=== PATIENT | female | born 1980 | race Caucasian/White ===

== ENCOUNTER 2024-03-04 17:19 | Emergency (ER) | payer OTHER, SELFPAY ==
[2024-03-04 17:32] VITALS: BP 152/89; PULSE 94; RESP 16; TEMP 37; O2SAT 99
--- NOTE | 2024-03-04 17:44 | ED.BACK ---
HPI - Back Pain/Injury General Chief Complaint: Back Pain/Injury Stated Complaint: back pain left side Time Seen by Provider: 03/04/24 17:44 Source: patient Mode of arrival: ambulatory Limitations: no limitations History of Present Illness HPI Narrative: 43-year-old female presents with complaint of pain to left upper back. States she was lifting a laundry basket over her head and felt muscle pop and pain. Took Aleve with no relief of pain. Pain worse with range of motion of left arm. Ambulatory with steady gait. No radiation of pain. No numbness or tingling to left upper extremity. All systems reviewed and negative except as noted above. Related Data Allergies Allergy/AdvReac Type Severity Reaction Status Date / Time iopamidol [From [id number]] Allergy Severe Anaphylaxis Verified 03/04/24 17:23 methylprednisolone Allergy Severe Anaphylaxis Verified 03/04/24 17:23 [From Depo-Medrol] Review of Systems Review of Systems: CONSTITUTIONAL: Denies fever, chills, or sweats. EYES: Denies visual changes, redness, or discharge. ENT: Denies rhinorrhea, congestion, sore throat, or otalgia. CARDIOVASCULAR: Denies chest pain, palpitations, or edema. RESPIRATORY: Denies cough or dyspnea. GASTROINTESTINAL: Denies abdominal pain, nausea, vomiting, or diarrhea. GENITOURINARY: Denies dysuria or hematuria. SKIN: Denies rash or itching. MUSCULOSKELETAL: Reports left upper back pain. Denies joint pain, or myalgia. NEUROLOGIC: Denies headache, numbness, or weakness. PSYCHIATRIC: Denies anxiety or depression. All other systems reviewed are negative, except as documented in HPI. PMFSH Social History Social History (Updated 10/12/19 @ 09:35 by Tadeo Valero, PAChrissyC) Smoking status: Never smoker Gender identity (if verbalized by the patient): Female Comments At time of signature, agree with nursing past medical, surgical, social and family history. There is no relevant family history pertinent to the presenting complaint. Exam Narrative: GENERAL: This is a well-nourished, well-developed patient, in no apparent distress. HEAD: normocephalic, atraumatic. EYES: PERRL. Sclera clear/white. Vision is grossly intact. EARS: External ears normal NOSE: External nose normal NECK: Neck supple, non-tender without lymphadenopathy, masses or thyromegaly. CARDIOVASCULAR: Regular rate and rhythm without murmurs, gallops, or rubs. RESPIRATORY: Clear to auscultation. Breath sounds equal bilaterally. No wheezes, rales, or rhonchi. SKIN: warm, Dry, intact with no suspicious lesions or rash, good texture and turgor. NEURO: awake, alert, and oriented to person, place and time. There were no obvious focal neurologic abnormalities. EXTREMITIES: No joint tenderness, effusion, or edema noted. BACK: no midline tenderness. No deformity. Tenderness on palpation of trapezius and rhomboid left upper back. Course Course Level of Care: Express Care Visit Vital Signs Vital signs: Vital Signs Temperature 37.0 C 03/04/24 17:32 Pulse Rate 94 03/04/24 17:32 Respiratory Rate 16 03/04/24 17:32 Blood Pressure 152/89 H 03/04/24 17:32 Pulse Oximetry 99 03/04/24 17:32 Oxygen Delivery Room Air 03/04/24 17:32 Temperature 37.0 C 03/04/24 17:32 Pulse Rate 94 03/04/24 17:32 Respiratory Rate 16 03/04/24 17:32 Blood Pressure 152/89 H 03/04/24 17:32 Pulse Oximetry 99 03/04/24 17:32 Oxygen Delivery Room Air 03/04/24 17:32 Reviewed MDM - Back Pain/Injury MDM Narrative Medical decision making narrative: Patient is aware of diagnosis, understands and agrees to treatment plan. Anticipatory guidance given. Patient agrees to follow-up as directed and is aware of reasons to seek care at the emergency department. Portions of this record may have been created with voice recognition software Differential Diagnosis Differential diagnosis: Likely thoracic back pain ( strain of thoracic muscle region)
== END 2024-03-04 18:00 | disposition home or self-care (01) ==
PROVIDERS: Emergency Provider Nurse Practitioner Family
DX: S29.012A Strain of muscle and tendon of back wall of thorax, initial encounter (principal); X50.9XXA Other and unspecified overexertion or strenuous movements or postures, initial encounter
CPT/HCPCS: 99213; G0463